=== PATIENT | male | born 1965 | race Two or more races ===

== ENCOUNTER 2022-04-05 14:00 | Inpatient (IN) | payer OTHER ==
[~2022-04-05] VITALS: Ht 170.2 cm; Wt 115.7 kg
[2022-04-05] MEDS ORDERED: SERTRA PO (15:41)
[2022-04-05] MEDS ORDERED: BUPRO PO (15:42)
[2022-04-11] MEDS ORDERED: BUPROPION HCL150 M1 (10:15)
[2022-04-11] MEDS ORDERED: SERTRALINE HCL100 MG (10:15)
[2022-04-11] MEDS ORDERED: ATORVASTATIN CA20 MG (10:15)
[2022-04-11] MEDS ORDERED: DICYCLOMINE HCL20 MG (10:16)
== END 2022-04-13 11:49 | disposition home or self-care (01) | DRG 661 ==
LOC: O/R 04-11 08:32 → SURH 04-11 14:00 → SURG 04-11 15:09
PROVIDERS: ADMIT Urology; ATTEND Urology
PROC: BT1DZZZ Fluoroscopy of Right Kidney, Ureter and Bladder (ICD-10-PCS; 2022-04-11)
PROC: 0TF Urinary System, Fragmentation (ICD-10-PCS; 2022-04-11)
PROC: 0TC03ZZ Extirpation of Matter from Right Kidney, Percutaneous Approach (ICD-10-PCS; principal; 2022-04-11 14:00)
DX: N20.0 Calculus of kidney (principal); Z20.822 Contact with and (suspected) exposure to COVID-19

== ENCOUNTER → 2022-04-20 | Outpatient (CLI) | payer OTHER ==
[~2022-04-20] MED LIST: ATORVASTATIN CA20 MG; BUPRO PO; BUPROPION HCL150 M1; DICYCLOMINE HCL20 MG; SERTRA PO; SERTRALINE HCL100 MG
== END | disposition home or self-care (01) ==
LOC: RAD 09:00
PROVIDERS: ATTEND Urology
DX: N20.0 Calculus of kidney (principal)